=== PATIENT | female | born 1970 | race African-American/Black ===

== ENCOUNTER 2021-04-18 10:20 | Inpatient (IN) | payer BC, OTHER ==
[~2021-04-18] VITALS: Ht 157.5 cm; Wt 84.4 kg
[2021-04-18] MEDS ORDERED: ASPIRIN 325MG EC TABLET PO ONE (10:45)
[2021-04-18 11:04] LABS: BASOPHILS % 0.7 % (0.0-2.0); EOSINOPHILS % 0.5 % (0.0-5.0); HEMATOCRIT. 39.6 % (36.0-48.0); HEMOGLOBIN. 13.6 g/dL (12.0-16.0); LYMPHOCYTES % 16.4 % (20.0-50.0); MEAN CORPUSCULAR HEMOGLOBIN 37.5 pg (28.0-32.0); MEAN CORPUSCULAR VOLUME 108.7 fL (81.0-99.0); MEAN PLATELET VOLUME 8.8 fl (7.4-10.4); MONOCYTES % 8.2 % (2.0-8.0); NEUTROPHILS % 74.2 % (40.0-76.0); PLATELET 310 x1000/uL (130-400); RED BLOOD CELL COUNT 3.64 mill/uL (4.2-5.4); RED CELL DISTRIBUTION WIDTH 22.3 % (11.6-14.6)
[2021-04-18] MEDS: NITROGLYCERIN 0.4MG TABLET SL SL PRN ×2 (11:04→13:42)
[2021-04-18 11:40] LABS: PLATELET ESTIMATE NORMAL
[2021-04-18 11:47] LABS: CHLORIDE 102 mEq/L (98-107)
[2021-04-18 11:51] LABS: INR 1.1; PROTHROMBIN TIME 11.3 sec (9.6-11.0)
[2021-04-18] MEDS ORDERED: ACETAMINOPHEN 325MG TABLET PO ONE (13:45)
[2021-04-18] MEDS ORDERED: ONDANSETRON HCL 4MG/2ML INJ IV ONE (13:45)
[2021-04-18] MEDS ORDERED: ACETAMINOPHEN 325MG TABLET PO PRN (14:00)
[2021-04-18] MEDS ORDERED: IPRATROPIUM/ALBUTEROL 0.5-3(2.5)MG/3ML NEB HHN PRN (14:00)
[2021-04-18] MEDS ORDERED: ONDANSETRON HCL 4MG/2ML INJ IV PRN (14:00)
[2021-04-18] MEDS ORDERED: DIPHENHYDRAMINE 50MG/ML VIAL IV PRN (14:00)
[2021-04-18] MEDS ORDERED: NALOXONE HCL 0.4MG/ML VIAL IV PRN (14:15)
[2021-04-18 16:00] VITALS: BP 160/75
[2021-04-18 16:30] VITALS: BP 160/75
[2021-04-18] MEDS ORDERED: BECL10.62 INH (16:50)
[2021-04-18] MEDS: ENOXAPARIN 40MG/0.4ML SYR SUBCUT SCH (17:02)
[2021-04-18] MEDS: MORPHINE SULFATE 2 MG/ML CPJ (NOT FOR IM USE) IV PRN (17:03)
[2021-04-18] MEDS: AMLODIPINE 5MG TABLET PO SCH (17:06)
[2021-04-18] MEDS ORDERED: INFLUENZA VACCINE 05/PF 0.5 ML SYRINGE IM ONE (17:15)
[2021-04-18 20:00] VITALS: BP 161/75
[2021-04-18] MEDS: CLONIDINE 0.1MG TABLET PO PRN (20:41)
[2021-04-19] VITALS: BP 132/60
[2021-04-19 00:15] LABS: CLARITY URINE CLEAR (CLEAR); COLOR URINE DARK YELLOW (YELLOW); KETONES URINE 1+ (NEGATIVE); LEUKOCYTE ESTERASE URINE NEGATIVE (NEGATIVE); NITRITE URINE NEGATIVE (NEGATIVE); OCCULT BLOOD URINE NEGATIVE (NEGATIVE); PROTEIN URINE TRACE (NEGATIVE); SPECIFIC GRAVITY URINE 1.026 (1.005-1.030)
[2021-04-19 00:29] LABS: *AMPHETAMINES SCREEN URINE NEGATIVE (NEGATIVE); *BARBITURATES SCREEN URINE NEGATIVE (NEGATIVE); *BENZODIAZEPINES SCREEN URINE NEGATIVE (NEGATIVE); *COCAINE SCREEN URINE NEGATIVE (NEGATIVE); METHADONE URINE SCREEN NEGATIVE (NEGATIVE)
[2021-04-19 00:30] LABS: CANNABINOID URINE SCREEN PRESUMTIVE POSITIVE (NEGATIVE); OPIATES URINE SCREEN PRESUMTIVE POSITIVE (NEGATIVE); PHENCYCLIDINE URINE SCREEN NEGATIVE (NEGATIVE)
[2021-04-19] MEDS: MORPHINE SULFATE 2 MG/ML CPJ (NOT FOR IM USE) IV PRN ×3 (03:21→18:05)
[2021-04-19 04:00] VITALS: BP 142/55
[2021-04-19 06:28] LABS: BASOPHILS % 0.5 % (0.0-2.0); EOSINOPHILS % 1.1 % (0.0-5.0); HEMATOCRIT. 33.7 % (36.0-48.0); HEMOGLOBIN. 11.2 g/dL (12.0-16.0); MEAN CORPUSCULAR HEMOGLOBIN 36.8 pg (28.0-32.0); MEAN CORPUSCULAR VOLUME 110.5 fL (81.0-99.0); MEAN PLATELET VOLUME 8.4 fl (7.4-10.4); NEUTROPHILS % 50.4 % (40.0-76.0); PLATELET 231 x1000/uL (130-400); RED BLOOD CELL COUNT 3.05 mill/uL (4.2-5.4); RED CELL DISTRIBUTION WIDTH 21.7 % (11.6-14.6)
[2021-04-19 06:39] LABS: CHLORIDE 104 mEq/L (98-107)
[2021-04-19 06:52] LABS: LDL CHOLESTEROL 35 mg/dL (5-100)
[2021-04-19 06:57] LABS: HDL CHOLESTEROL 79 mg/dL (40-59)
[2021-04-19 08:00] VITALS: BP 143/64
[2021-04-19] MEDS: AMLODIPINE 5MG TABLET PO SCH (09:06)
[2021-04-19] MEDS: ASPIRIN 81MG EC TABLET PO SCH (09:06)
[2021-04-19 12:00] VITALS: BP 140/108
[2021-04-19] MEDS: ENOXAPARIN 40MG/0.4ML SYR SUBCUT SCH (13:20)
[2021-04-19 16:00] VITALS: BP 170/78
[2021-04-19] MEDS: CLONIDINE 0.1MG TABLET PO PRN (17:26)
[2021-04-19 20:00] VITALS: BP 125/73
[2021-04-19] MEDS: ENOXAPARIN 30MG/0.3ML SYR SUBCUT SCH (22:12)
[2021-04-20 00:03] VITALS: BP 128/72
[2021-04-20] MEDS: MORPHINE SULFATE 2 MG/ML CPJ (NOT FOR IM USE) IV PRN ×3 (00:06→21:15)
[2021-04-20 04:00] VITALS: BP 135/73
[2021-04-20 06:59] LABS: BASOPHILS % 0.3 % (0.0-2.0); EOSINOPHILS % 0.8 % (0.0-5.0); HEMOGLOBIN. 11.8 g/dL (12.0-16.0); LYMPHOCYTES % 24.1 % (20.0-50.0); MEAN CORPUSCULAR HEMOGLOBIN 36.7 pg (28.0-32.0); MEAN CORPUSCULAR VOLUME 109.3 fL (81.0-99.0); MEAN PLATELET VOLUME 8.5 fl (7.4-10.4); MONOCYTES % 8.8 % (2.0-8.0); PLATELET 261 x1000/uL (130-400); RED BLOOD CELL COUNT 3.21 mill/uL (4.2-5.4); RED CELL DISTRIBUTION WIDTH 21.6 % (11.6-14.6)
[2021-04-20 07:03] LABS: CHLORIDE 102 mEq/L (98-107)
[2021-04-20 08:00] VITALS: BP 172/78
[2021-04-20] MEDS: AMLODIPINE 5MG TABLET PO SCH ×2 (09:05→21:17)
[2021-04-20] MEDS: ENOXAPARIN 30MG/0.3ML SYR SUBCUT SCH (09:05)
[2021-04-20] MEDS: CLONIDINE 0.1MG TABLET PO PRN (09:05)
[2021-04-20] MEDS: ASPIRIN 81MG EC TABLET PO SCH (09:05)
[2021-04-20 12:00] VITALS: BP 140/67
[2021-04-20 16:00] VITALS: BP 122/75
[2021-04-20 20:00] VITALS: BP 154/66
[2021-04-21] VITALS: BP 138/96
[2021-04-21 04:00] VITALS: BP 143/82
[2021-04-21 05:35] LABS: BASOPHILS % 0.2 % (0.0-2.0); EOSINOPHILS % 0.6 % (0.0-5.0); HEMATOCRIT. 37.3 % (36.0-48.0); HEMOGLOBIN. 12.6 g/dL (12.0-16.0); LYMPHOCYTES % 14.9 % (20.0-50.0); MEAN CORPUSCULAR HEMOGLOBIN 37.1 pg (28.0-32.0); MEAN CORPUSCULAR VOLUME 110.1 fL (81.0-99.0); MEAN PLATELET VOLUME 8.6 fl (7.4-10.4); MONOCYTES % 7.4 % (2.0-8.0); NEUTROPHILS % 76.9 % (40.0-76.0); PLATELET 265 x1000/uL (130-400); RED BLOOD CELL COUNT 3.39 mill/uL (4.2-5.4); RED CELL DISTRIBUTION WIDTH 21.8 % (11.6-14.6)
[2021-04-21 06:26] LABS: CHLORIDE 103 mEq/L (98-107)
[2021-04-21 08:00] VITALS: BP 136/75
[2021-04-21] MEDS ORDERED: ENOXAPARIN 40MG/0.4ML SYR SUBCUT SCH (09:00)
[2021-04-21] MEDS ORDERED: REGADENOSON 0.4 MG/5 ML IV ONE ×2 (09:00→13:24)
[2021-04-21] MEDS: AMLODIPINE 5MG TABLET PO SCH (09:28)
[2021-04-21] MEDS: ASPIRIN 81MG EC TABLET PO SCH (09:28)
[2021-04-21 12:00] VITALS: BP 134/69
[2021-04-21 16:00] VITALS: BP 150/80
[2021-04-21] MEDS ORDERED: ACET650T37 MT (16:55)
[2021-04-21] MEDS ORDERED: AMLO5TAB88 PO (16:55)
[2021-04-21] MEDS ORDERED: HYDR-4001 MT (16:55)
[2021-04-21] MEDS ORDERED: LIDO700A30 TOP (16:58)
[2021-04-21] MEDS ORDERED: LIDOCAINE 5% PATCH TOP SCH (17:00)
[2021-04-21 17:39] VITALS: BP 150/80
== END 2021-04-21 18:00 | disposition home or self-care (01) | DRG 313 ==
LOC: ER 10:29 → 6WST 13:33 → EDBEDREQTM 13:37 → EDBEDREQ 13:37 → ENRESERV 14:23 → 6WST 04-20 11:00
PROVIDERS: ADMIT Internal Medicine; ATTEND Internal Medicine
DX: R07.89 Other chest pain (principal); I16.0 Hypertensive urgency; F17.210 Nicotine dependence, cigarettes, uncomplicated; J45.909 Unspecified asthma, uncomplicated; M54.2 Cervicalgia; M25.512 Pain in left shoulder; Z71.6 Tobacco abuse counseling; Z79.51 Long term (current) use of inhaled steroids
CPT/HCPCS: 36415; 71045; 73030; 78452; 80048; 80053; 80061; 80305; 81003; 83880; 84443; 84484; 85025; 90686; 93005; 93017; 93306; 93970; 99285; A9500; J1650; J2270; J2405; J2785